=== PATIENT | male | born 1980 | race African-American/Black ===

== ENCOUNTER 2020-07-26 11:52 | Emergency (ER) | payer OTHER ==
[2020-07-26 12:32] LABS: #Basophils 0.1 thou/uL (0.0-0.2); #Eosinphils 0.3 thou/uL (0.0-0.7); #Lymphocytes 1.8 thou/uL (1.20-3.40); #Monocytes 0.4 thou/uL (0.11-0.59); #Neutrophils 2.1 thou/uL (1.40-6.50); %Basophils 1.8 % (0.0-1.0); %Eosinophils 6.7 % (0.0-10.0); %Lymphocytes 38.8 % (21.0-51.0); %Monocytes 8.4 % (0.0-10.0); %Neutrophils 44.3 % (42.0-75.0); Hemoglobin 12.7 g/dL (14.0-18.0); Mean Corpuscular HGB CONC 32.4 g/dL (32.0-36.0); Mean Corpuscular Hemoglobin 26.9 pg (27.0-31.0); Mean Corpuscular Volume 83.1 fL (78.0-98.0); Mean Platelet Volume 7.6 fL (7.4-10.4); Platelet Count 302 thou/uL (130-400); RBC Distribution Width 11.9 % (11.5-14.5); Red Blood Cell (RBC) Count 4.73 mill/uL (4.70-6.10); White Blood Cell (WBC) Count 4.7 thou/uL (4.8-10.8)
--- NOTE | 2020-07-26 12:32 | RAD ---
PORTABLE CHEST 1 VIEW: DATE: 07/26/2020. TIME: 12:07 PM. HISTORY: Chest pain. FINDINGS: The heart size is normal. No focal areas of consolidation, pneumothoraces, or pleural effusions are seen. IMPRESSION: No radiographic evidence of acute cardiopulmonary process. POS: AH
[2020-07-26 12:53] LABS: ALT (SGPT) 20 U/L (8-55); AST (SGOT) 14 U/L (5-34); Albumin 4.2 g/dL (3.5-5.0); Alkaline Phosphatase 78 U/L (40-110); Anion Gap 12 mmol/L (10-20); BUN (Urea Nitrogen) 16 mg/dL (8.9-20.6); Bilirubin, Total 0.3 mg/dL (0.2-1.2); Calc. Creatinine Clearance 0 mL/min (70-130); Calcium 9.3 mg/dL (7.8-10.44); Carbon Dioxide 24 mmol/L (22-29); Chloride 108 mmol/L (98-107); Estimated GFR-MDRD 73; Globulin 2.7 g/dL (2.4-3.5); Glucose 95 mg/dL (70-105); Lipase 76 U/L (8-78); Potassium 4.2 mmol/L (3.5-5.1); Protein, Total 6.9 g/dL (6.0-8.3); Sodium 140 mmol/L (136-145)
[2020-07-26] MEDS ORDERED: Ketorolac Tromethamine 30 MG/ML VIAL ONE (12:59)
[2020-07-26] MEDS ORDERED: Ondansetron PF 4 MG/2 ML Vial ONE (12:59)
[2020-07-26] MEDS ORDERED: Acetaminophen 500 MG TAB ONE (14:26)
[2020-07-26 15:47] LABS: Troponin I 0.011 ng/mL (< 0.028)
[2020-07-29 00:12] LABS: SARS-CoV-2 MS2 Positive; SARS-CoV-2 N Gene Negative; SARS-CoV-2 S Gene Negative; SARS-CoV-2 by NAA Not Detected (Not Detected); SARS-CoV-2 orf1ab Negative
--- NOTE | 2020-08-03 16:04 | EKG ---
Test Reason : Blood Pressure : / mmHG Vent. Rate : 059 BPM Atrial Rate : 059 BPM P-R Int : 186 ms QRS Dur : 092 ms QT Int : 392 ms P-R-T Axes : 076 080 020 degrees QTc Int : 388 ms Sinus bradycardia with sinus arrhythmia Otherwise normal ECG Confirmed by DOMINIC RUST, WES ([id number]), video news editor FRANK MÁRQUEZ ([id number]) on 08/03/2020 4:03:22 PM Referred By: Confirmed By:WES ALFARO MD
--- NOTE | 2020-08-03 16:41 | EKG ---
Test Reason : Blood Pressure : / mmHG Vent. Rate : 062 BPM Atrial Rate : 062 BPM P-R Int : 160 ms QRS Dur : 090 ms QT Int : 378 ms P-R-T Axes : 029 010 003 degrees QTc Int : 383 ms Normal sinus rhythm Nonspecific ST abnormality Abnormal ECG Confirmed by DAVY RUST, NAT ([id number]), purchase request editor FRANK MÁRQUEZ ([id number]) on 08/03/2020 4:41:10 PM Referred By: Confirmed By:NAT BHATTI MD
== END 2020-07-26 16:05 ==
LOC: EEVIPCON 11:52 → ERS 11:52
DX: R07.9 Chest pain, unspecified (principal); R53.83 Other fatigue; Z20.828 Contact with and (suspected) exposure to other viral communicable diseases
CPT/HCPCS: 36415; 71045; 80053; 83690; 84484; 85025; 87635; 93005; 96374; 96375; J1885; J2405; U0003

== ENCOUNTER 2020-10-18 11:39 | Emergency (ER) | payer OTHER ==
[2020-10-18 12:04] LABS: #Basophils 0.1 thou/uL (0.0-0.2); #Eosinphils 0.2 thou/uL (0.0-0.7); #Lymphocytes 1.6 thou/uL (1.20-3.40); #Monocytes 0.3 thou/uL (0.11-0.59); #Neutrophils 1.9 thou/uL (1.40-6.50); %Basophils 1.6 % (0.0-1.0); %Eosinophils 5.3 % (0.0-10.0); %Lymphocytes 38.5 % (21.0-51.0); %Monocytes 8.4 % (0.0-10.0); %Neutrophils 46.2 % (42.0-75.0); Mean Corpuscular HGB CONC 31.8 g/dL (32.0-36.0); Mean Corpuscular Hemoglobin 27.3 pg (27.0-31.0); Mean Corpuscular Volume 85.8 fL (78.0-98.0); Mean Platelet Volume 7.5 fL (7.4-10.4); Platelet Count 250 thou/uL (130-400); RBC Distribution Width 11.4 % (11.5-14.5); Red Blood Cell (RBC) Count 4.76 mill/uL (4.70-6.10)
--- NOTE | 2020-10-18 12:05 | RAD ---
Portable frontal chest radiograph: 10/18/2020 COMPARISON: 07/26/2020 HISTORY: Sharp central chest pain FINDINGS: Lungs are clear. Heart and mediastinal contours appear within normal limits. IMPRESSION: No acute findings.
[2020-10-18 12:26] LABS: ALT (SGPT) 22 U/L (8-55); AST (SGOT) 13 U/L (5-34); Albumin 4.3 g/dL (3.5-5.0); Alkaline Phosphatase 74 U/L (40-110); Anion Gap 11 mmol/L (10-20); BUN (Urea Nitrogen) 16 mg/dL (8.9-20.6); Bilirubin, Total 0.7 mg/dL (0.2-1.2); CK (CPK) 226 U/L (30-200); Calc. Creatinine Clearance 0 mL/min (70-130); Calcium 8.9 mg/dL (7.8-10.44); Carbon Dioxide 26 mmol/L (22-29); Chloride 106 mmol/L (98-107); Globulin 2.8 g/dL (2.4-3.5); Glucose 101 mg/dL (70-105); Protein, Total 7.1 g/dL (6.0-8.3); Sodium 139 mmol/L (136-145)
[2020-10-18] MEDS ORDERED: Acetaminophen 500 MG TAB ONE (13:50)
[2020-10-18] MEDS ORDERED: Lidocaine Viscous Sol 2% 15 ml UD Cup ONE (15:21)
[2020-10-18] MEDS ORDERED: Famotidine/PF 20 mg/2ml Vial ONE (15:21)
[2020-10-18] MEDS ORDERED: Mag-Al 1200 mg/1200 mg/30 ML UDCUP ONE (15:21)
[2020-10-18 15:36] LABS: Troponin I Less than 0.010 ng/mL (< 0.028)
--- NOTE | 2020-11-02 22:31 | EKG ---
Test Reason : Blood Pressure : / mmHG Vent. Rate : 069 BPM Atrial Rate : 069 BPM P-R Int : 176 ms QRS Dur : 092 ms QT Int : 370 ms P-R-T Axes : 047 -22 -24 degrees QTc Int : 396 ms Normal sinus rhythm Nonspecific T wave abnormality Abnormal ECG Confirmed by DAWIT MACDONALD DO ([id number]), video effects editor FRANK MÁRQUEZ ([id number]) on 11/02/2020 10:31:26 PM Referred By: Confirmed By:DAWIT MACDONALD DO
== END 2020-10-18 16:22 ==
LOC: ERS 11:39
DX: R07.9 Chest pain, unspecified (principal); K21.9 Gastro-esophageal reflux disease without esophagitis; G43.909 Migraine, unspecified, not intractable, without status migrainosus; Z87.891 Personal history of nicotine dependence
CPT/HCPCS: 36415; 71045; 80053; 82550; 84484; 85025; 93005; 94760; 96374; S0028